=== PATIENT | female | born 1985 | race Caucasian/White ===

== ENCOUNTER 2018-01-31 15:35 | Emergency (ER) | payer OTHER ==
[~2018-01-31] VITALS: Ht 162.6 cm; Wt 116.0 kg
[~2018-01-31 15:35] MED LIST: BACDS PO; CEPH250C92 PO; DOXY-8 PO; HYDR1TAB PO; NO HOME MEDS
[2018-01-31 15:39] VITALS: BP 192/108
[2018-01-31] MEDS ORDERED: ibuprofen tablet 400 MG TABLET PO ONE (16:00)
[2018-01-31] MEDS ORDERED: cephalexin 250mg capsule PO ONE (16:00)
[2018-01-31] MEDS ORDERED: NAPR-56 PO (16:03)
[2018-01-31] MEDS ORDERED: CEPH250T PO (16:03)
[2018-01-31] MEDS ORDERED: diphenhydrAMINE 25mg capsule PO ONE (16:05)
[2018-01-31] MEDS ORDERED: DIPH25CA83 PO (16:11)
== END 2018-01-31 16:24 | disposition home or self-care (01) ==
LOC: ER 15:36
DX: L03.211 Cellulitis of face (principal); R51 Headache; Z56.0 Unemployment, unspecified; Z88.5 Allergy status to narcotic agent
CPT/HCPCS: 99284; Q0163

== ENCOUNTER 2021-08-09 12:54 | Emergency (ER) | payer SELFPAY ==
[~2021-08-09] VITALS: Ht 162.6 cm; Wt 119.0 kg
[~2021-08-09 12:54] MED LIST changes: +DIPH25CA83 PO
[2021-08-09 13:12] VITALS: BP 171/103
== END 2021-08-09 17:19 | disposition left against medical advice (07) ==
LOC: ER 12:54
DX: R55 Syncope and collapse (principal); Z53.21 Procedure and treatment not carried out due to patient leaving prior to being seen by health care provider
CPT/HCPCS: 93005

== ENCOUNTER 2022-09-04 07:12 | Emergency (ER) | payer BC ==
[~2022-09-04] VITALS: Ht 162.6 cm; Wt 120.8 kg
[2022-09-04] MEDS ORDERED: ketorolac trometh inj. 60 MG/2 ML VIAL IM ONE (08:05)
[2022-09-04] MEDS ORDERED: HYDROcodone/acetaminophen 5mg/325mg tablet PO ONE (08:05)
[2022-09-04] MEDS ORDERED: IBUP-1985 PO (08:06)
[2022-09-04] MEDS ORDERED: HYDR-3965 PO (08:06)
[2022-09-04 08:51] VITALS: BP 151/90
[2022-09-04] MEDS ORDERED: TRAM1TAB7 PO (10:59)
== END 2022-09-04 09:40 | disposition home or self-care (01) ==
LOC: ER 07:12
DX: M54.50 Low back pain, unspecified (principal); Z88.5 Allergy status to narcotic agent; Z56.0 Unemployment, unspecified
CPT/HCPCS: 82948; 96372; 99283; J1885

== ENCOUNTER 2023-04-27 18:36 | Emergency (ER) | payer BC ==
[~2023-04-27] VITALS: Ht 162.6 cm; Wt 127.7 kg
[~2023-04-27 18:36] MED LIST changes: +IBUP-1985 PO
[2023-04-27 18:46] VITALS: BP 172/89; PULSE 109; RESP 17; TEMP 98.8; O2SAT 94
[2023-04-27] MEDS ORDERED: NAPR-56 PO (19:17)
[2023-04-27] MEDS ORDERED: DOXY-1 PO (19:17)
== END 2023-04-27 19:56 | disposition home or self-care (01) ==
LOC: ER 18:36
DX: K04.7 Periapical abscess without sinus (principal); G89.29 Other chronic pain; M54.9 Dorsalgia, unspecified; Z88.5 Allergy status to narcotic agent; Z79.899 Other long term (current) drug therapy
CPT/HCPCS: 99283

== ENCOUNTER 2023-11-09 13:50 | Emergency (ER) | payer BC ==
[~2023-11-09] VITALS: Ht 162.6 cm; Wt 118.7 kg
[2023-11-09 13:59] VITALS: BP 163/100; PULSE 99; TEMP 98.7; O2SAT 95
[2023-11-09] MEDS: HYDROcodone/acetaminophen 5mg/325mg tablet PO ONE (14:41)
[2023-11-09] MEDS: metoclopramide 5 mg/ml inj IV ONE (15:27)
[2023-11-09] MEDS: dexamethasone sod phosphate 10mg/ml inj IV STA (15:28)
[2023-11-09] MEDS: diphenhydrAMINE 50 mg/ml inj IV ONE (15:29)
[2023-11-09] MEDS ORDERED: FIOCOC PO (15:38)
[2023-11-09 16:07] VITALS: RESP 14
[2023-11-09] MEDS: ketorolac tromethamine 15mg/ml inj. IV ONE (16:07)
== END 2023-11-09 16:25 | disposition home or self-care (01) ==
LOC: ER 13:51
DX: G43.909 Migraine, unspecified, not intractable, without status migrainosus (principal); G89.29 Other chronic pain; M54.9 Dorsalgia, unspecified; Z56.0 Unemployment, unspecified; Z79.899 Other long term (current) drug therapy; Z79.1 Long term (current) use of non-steroidal anti-inflammatories (NSAID); Z88.8 Allergy status to other drugs, medicaments and biological substances
CPT/HCPCS: 70450; 96374; 96375; 99285; J1100; J1200; J1885; J2765